=== PATIENT | female | born 1980 | race Caucasian/White ===

== ENCOUNTER 2021-05-13 19:10 | Emergency (ER) | payer OTHER, SELFPAY ==
[2021-05-13 19:12] VITALS: BP 166/109; PULSE 96; RESP 16; TEMP 37.1; O2SAT 99; BMI 26.6
[2021-05-13 19:41] LABS: Appearance Urine HAZY; Glucose Urine UA >=1000 MG/DL (NEG); Leukocyte Esterase Urine NEG (NEG); Specific Gravity - Urine 1.015 (1.005-1.025); UACC Culture Trigger YES; Urine Blood 1+ (NEG); Urine Ketones 5 MG/DL (NEG); Urine Protein 2+ MG/DL (NEG-TRACE)
[2021-05-13 19:52] LABS: Color Urine ORANGE
[2021-05-13 19:53] LABS: Nitrite Urine POS (NEG)
[2021-05-13 19:54] LABS: UPreg QC Valid YES; Urine Pregnancy NEGATIVE (NEGATIVE)
[2021-05-13 19:57] LABS: Bacteria Urine 2+ /LPF; Squamous Epithelial Cell Urine TRACE /LPF; WBC Clumps Urine NOTED; WBC Urine 50-75 /HPF (0-4)
--- NOTE | 2021-05-13 21:48 | ED.FEMALEGU ---
HPI - Female Genitourinary General Chief complaint: Urogenital-Female Stated complaint: ?uti Time Seen by Provider: 05/13/21 21:35 Source: patient Mode of arrival: ambulatory History of Present Illness HPI Narrative: 40-year-old female without significant past medical history presents with pain in burning on urination for the past 2-3 days and has over the past 1 day been associated with chills and nausea with 2 episodes of vomiting. Patient also reports some mild back discomfort Related Data Previous Rx's Medication Instructions Recorded ciprofloxacin HCl 500 mg tablet 500 mg PO Q12H 5 Days #10 tab 05/13/21 (Cipro) phenazopyridine 200 mg tablet 200 mg PO TID PRN #6 tab 05/13/21 (Pyridium) Allergies Allergy/AdvReac Type Severity Reaction Status Date / Time No Known Allergies Allergy Verified 05/13/21 21:46 Review of Systems Review of Systems: Pertinent positives and negatives as stated in HPI 10 point review of systems is otherwise negative. [facility] Past Medical History Source: nursing notes reviewed Social History Social History Patient : No Physical Exam Vital Signs: Vital Signs: Last Vital Signs Temp 98.7 F 05/13/21 19:12 Pulse 96 05/13/21 19:12 Resp 16 05/13/21 19:12 BP 166/109 H 05/13/21 19:12 Pulse Ox 99 05/13/21 19:12 BMI result Body Mass Index 26.6 VITAL SIGNS: Reviewed. GENERAL: Well developed, well nourished, in no acute distress. HEAD: Normocephalic/atraumatic EYES: PERRLA, EOMI LUNGS: Normal breath sounds. No adventitious sounds or accessory muscle use. SpO2<99> CARDIOVASCULAR: Regular rate and rhythm without noted murmurs ABDOMEN: Soft, suprapubic tenderness without rebound, non-distended with bowel sounds, right-sided CVA tenderness NEUROLOGIC: Alert and oriented x 4. Course Course Course Narrative: 40-year-old female with history and clinical presentation consistent with clinical diagnosis of pyelonephritis after review of urinalysis results. Patient provided with combination analgesics, antibiotics as well as pyridium. MDM - Female Genitourinary Lab Data Labs: Lab Results 05/13/21 05/13/21 Range/Units 19:35 19:35 Urine Color ORANGE Urine Appearance HAZY Urine pH 5.0 (5.0-8.0) Ur Specific [place] 1.015 (1.005-1.025) Urine Protein 2+ H (NEG-TRACE) MG/DL Urine Glucose (UA) >=1000 H (NEG) MG/DL Urine Ketones 5 (NEG) MG/DL Urine Blood 1+ H (NEG) Urine Nitrite POS H (NEG) Ur Leukocyte Esterase NEG (NEG) Urine RBC 1-4 (0) /HPF Urine WBC 50-75 H (0-4) /HPF Urine WBC Clumps NOTED Ur Squamous Epith Cells TRACE /LPF Urine Bacteria 2+ /LPF Urine Test NEGATIVE (NEGATIVE) Discharge Plan Discharge Clinical Impression: Pyelonephritis, Dysuria Patient Disposition: Home, Self-Care Instructions: Ciprofloxacin (By mouth), Phenazopyridine (By mouth), Kidney Infection (ED), Dysuria (ED) Additional Instructions: 1. Increase fluid hydration, especially with water. 2. Complete the entire course of antibiotics. 3. Follow-up with your primary care provider in the next 2-3 days for re-evaluation further outpatient management. Return to the ER for worsening symptoms. Prescriptions: New ciprofloxacin HCl [Cipro] 500 mg tablet 500 mg PO Q12H 5 Days Qty: 10 RF: 0 phenazopyridine [Pyridium] 200 mg tablet 200 mg PO TID PRN (Reason: pain) Qty: 6 RF: 0
[2021-05-13] MEDS: Acetaminophen 325 MG TABLET 975 MG PO (21:54)
[2021-05-13] MEDS: levoFLOXacin 500 MG TABLET PO (21:54)
[2021-05-13] MEDS: Phenazopyridine HCL 200 MG TABLET PO (21:54)
[2021-05-13] MEDS: Ibuprofen 400 MG TABLET PO (22:11)
[2021-05-13] MEDS: Ondansetron ODT 4 MG TAB.RAPDIS TRANSLINGU (22:11)
== END 2021-05-13 22:15 | disposition home or self-care (01) ==
LOC: HO.ED 22:14
PROVIDERS: Emergency Provider Student in an Organized Health Care Education/Training Program; PCP Internal Medicine
DX: N12 Tubulo-interstitial nephritis, not specified as acute or chronic (principal); R30.0 Dysuria
CPT/HCPCS: 81001; 81025; 87086; 87088; 87186; 99283

== ENCOUNTER 2023-01-15 14:16 | Emergency (ER) | payer OTHER, SELFPAY ==
--- NOTE | ~2023-01-15 | CT_ITS ---
EXAMINATION: CT ABDOMEN AND PELVIS WITH CONTRAST CLINICAL INFORMATION: RLQ, suprapubic, R CVAT COMPARISON: None. TECHNIQUE: Multidetector volumetric imaging was performed from the superior aspect of the liver through the pubic symphysis following administration of 85 mL Omnipaque 300 intravenous contrast. Sagittal and coronal reformatted images were obtained on the technologist workstation.. This CT examination was performed using dose optimization techniques as appropriate, variously including the following: *Automated exposure control *Adjustment of mA and/or kV according to patient size (this includes techniques or standardized protocols for targeted exams where dose is matched to indication/reason for exam; i.e. extremities or head) *Use of iterative reconstruction technique DLP: 544 mGy-cm FINDINGS: LUNG BASES: Bibasilar airspace changes likely reflecting a component of atelectasis. Basilar infiltrates considered less likely. LIVER, GALLBLADDER, AND BILIARY TREE: The liver is normal in size, shape, and attenuation. No focal hepatic lesion or biliary ductal dilatation is present. The gallbladder surgically absent PANCREAS: Unremarkable. SPLEEN: Unremarkable. ADRENAL GLANDS: Unremarkable. KIDNEYS AND URETERS: The kidneys are normal in size, shape, and attenuation. No hydronephrosis, hydroureter, or calculi seen. No perinephric stranding. BLADDER: Unremarkable. GASTROINTESTINAL TRACT: The small and large bowel are unremarkable. The appendix is unremarkable. ABDOMINAL WALL: Tiny bilateral fat-containing inguinal hernias incidentally noted LYMPHOVASCULAR STRUCTURES: Minimal vascular calcification within the aorta iliac system. No bulky adenopathy PELVIC VISCERA: Unremarkable. OSSEOUS STRUCTURES: Unremarkable. CT/CT abdomen pelvis w IV con IMPRESSION: No acute intra-abdominal process seen. Bibasilar airspace changes likely due to atelectasis. Basilar infiltrates considered less likely.
--- NOTE | 2023-01-15 14:23 | ED_ITS ---
HPI - General Adult General Chief complaint: Abdominal Pain Stated complaint: UTI, Back pain Time Seen by Provider: 01/15/23 17:49 Source: patient Mode of arrival: ambulatory Limitations: no limitations History of Present Illness HPI narrative: 42 yold female with pmh of DM and kidney stones presents to the ED for right flank pain, dysuria, and right lower abdominal pain. Patient believes she is having an UTI. patient denies any recent trauma. Patient states also some nausea. Related Data Previous Rx's Medication Instructions Recorded ciprofloxacin HCl 500 mg tablet 500 mg PO Q12H 5 days #10 tabs 05/13/21 (Cipro) phenazopyridine 200 mg tablet 200 mg PO TID PRN pain 6 doses #6 05/13/21 (Pyridium) tabs levofloxacin 750 mg tablet 750 mg PO DAILY 5 days #5 tabs 01/15/23 naproxen 500 mg tablet 500 mg PO BID PRN pain 7 days #14 01/15/23 tabs Allergies Allergy/AdvReac Type Severity Reaction Status Date / Time No Known Allergies Allergy Verified 05/13/21 21:46 Review of Systems 2 Review of Systems: Right flank pain, dysuria, right lower abdominal pain Yes all other systems are reviewed and are negative [facility] Social History Social History Alcohol intake: never Smoked in Last 30 Days: No Use of substances other than those prescribed or required for medical reasons: No Advance Directives: No Advance Directives Information Provided: No Patient : No Physical Exam ED Vital Signs: Vital Signs - 24 hr 01/15/23 19:31 01/15/23 22:29 Temperature 98.6 F 99.1 F Pulse Rate 73 70 Respiratory Rate 16 16 Blood Pressure 101/65 113/73 Pulse Oximetry 96 98 Oxygen Delivery Method Room Air Room Air BMI result Body Mass Index 26.5 Const General: cooperative, healthy appearing, comfortable, no acute distress, well developed and alert Orientation/consciousness: oriented to person, oriented to place, oriented to time and patient oriented x3 HENMT Head: Yes normal to inspection, Yes No palpable skull fracture present, Yes normocephalic and Yes atraumatic Eyes General: appearance normal, both eyes and all related structures Neck Neck: Yes normal visual inspection, Yes full ROM, Yes no lymphadenopathy, Yes no meningeal signs, Yes trachea midline, Yes supple, No anterior neck swelling and No tender Chest Chest palpation & inspection: normal inspection of the chest and normal palpation of entire chest wall Resp Effort & Inspection: normal respiratory effort and able to speak in complete sentences Auscultation: clear to auscultation bilaterally Cardio Jugular venous distension: no JVD Heart sounds: S1 normal heart sound present and S2 normal heart sound present GI Inspection: Yes normal to inspection and No abdominal wall ecchymosis Palpation (GI): Soft to palpation, not firm, Tenderness to palpation present (GI) in the RLQ, no guarding and not rigid General: Yes CVA tenderness (Right flank pain) Back/Spine/Pelvis Back: CVA tenderness (Right flank pain) Skin General skin exam: no rashes or lesions noted, elasticity normal and turgor normal Neuro General: oriented to person, oriented to place, oriented to time, patient oriented x3, gait normal, tone normal, moves all extremities, Normal light touch and pain sensation, no meningeal signs, no focal motor deficits, CN's II-XI intact bilaterally and normal sensation to monofilament Extrem General: Yes normal to inspection and Yes full ROM Psych Appearance: grossly normal, well kempt and not disheveled Course Course Course Narrative: RME: 42yo F w/no sig PMHx c/o dysuria, nausea, & R sided back pain radiating to L back and RLQ x5 days. Denies fever, chills, N/V, hematuria Abdomen soft with RLQ/suprapubic & R CVAT Labs, UA, CTAP w/IV contrast ordered Full HPI, ROS and PE to be performed by primary ED provider. Medications Administered Discontinued Medications Generic Name Dose Route Start Last Admin Trade Name Freq PRN Reason Stop Dose Admin Sodium Chloride 1,000 mls @ 999 mls/hr 01/15/23 17:52 01/15/23 18:41 Ns IV 01/15/23 18:52 Infused .Q1H1M STA Infusion Sodium Chloride 1,000 mls @ 999 mls/hr 01/15/23 17:52 01/15/23 20:10 Ns IV 01/15/23 18:52 Infused .Q1H1M STA Infusion Ceftriaxone Sodium 1 gm/ 50 mls @ 100 mls/hr 01/15/23 21:43 01/15/23 23:00 Sodium Chloride IV 01/15/23 22:12 Infused ONCE ONE Infusion Iohexol 100 ml 01/15/23 20:46 01/15/23 20:47 Iohexol 350 Mg/Ml 100 Ml Infus..Btl IV 01/15/23 20:47 85 ml ONCE ONE Administration Ketorolac Tromethamine 15 mg 01/15/23 18:24 01/15/23 18:45 Ketorolac Tromethamine 15 Mg/Ml Vial IVPUSH 01/15/23 18:25 15 mg ONCE ONE Administration Ondansetron HCl 4 mg 01/15/23 18:24 01/15/23 18:46 Ondansetron Hcl 4 Mg/2 Ml Vial IVPUSH 01/15/23 18:25 4 mg ONCE ONE Administration Medical Decision Making Medical Decision Making [facility] Narrative: [age] year old female history of diabetes and kidney stones presents to ED for right flank pain, dysuria, and right lower quadrant abdominal pain. Patient believes she is having a UTI. Patient denies any recent trauma. Labs shows glucose of 399. patient not in DKA. Will give fluids 11:12am: UA shows UTI. CT scan negative for signs of kidney stones. Patient afebrile not tachy. Lactic acid negative. Patient to be treated as outpatient pyelonephritis. Patient's glucose was elevated most likely due to infection and missing her does metformin. Patient not in DKA Differential Diagnosis Differential Diagnoses: The differential diagnosis associated with the presentation includes ( pyelonephritis, kidney stones, UTI, DKA, HHS) Admission/Observation Consideration of admission/observation: Escalation of care including admission/observation considered Lab Data [facility] Lab Attestation statement: I reviewed the patient's lab results. 01/15/23 14:56 01/15/23 14:56 Labs: Lab Results 01/15/23 01/15/23 01/15/23 Range/Units 14:56 18:06 23:15 WBC 14.2 H (4.8-10.8) X10*3/uL RBC 5.12 (4.20-5.50) X10*6/uL Hgb 14.8 (12.0-16.0) g/dl Hct 44.2 (37.0-47.0) % MCV 86.3 (80.0-98.0) fL MCH 28.9 (27.0-33.0) pg MCHC 33.5 (31.0-35.0) g/dl RDW 12.3 (11.0-16.0) % Plt Count 257 (160-400) X10*3/uL MPV 11.2 (9.4-12.3) fL Immature Gran % (Auto) 0.5 H (0.0-0.4) % Neut % (Auto) 77.0 H (45-73) % Lymph % (Auto) 16.0 L (20-40) % [place] % (Auto) 4.2 (2-11) % Eos % (Auto) 2.0 (0-4) % Baso % (Auto) 0.3 (0-2) % Lymph # (Auto) 2.3 (1.2-4.9) X10*3/uL [place] # (Auto) 0.6 (0.1-1.2) X10*3/uL Eos # (Auto) 0.3 (0.0-0.4) X10*3/uL Baso # (Auto) 0.0 (0.0-0.2) X10*3/uL Abs Immat Gran (auto) 0.07 H (0.00-0.03) X10*3/uL Absolute Neuts (auto) 10.9 H (2.0-8.3) x10*3/uL Absolute Nucleated RBC 0.000 (0.0-0.012) X10*3/uL Nucleated RBC % (auto) 0.0 (0.0-0.2) /100WBC Sodium 134 L (135-145) mmol/L Potassium 4.0 (3.3-5.1) mmol/L Chloride 101 (96-108) mmol/L Carbon Dioxide 26 (22-29) mmol/L Anion Gap 11 L (12-20) BUN 7 L (9-16) mg/dL Creatinine 0.88 (0.5-1.4) mg/dL Estim Creat Clear Calc 83.8 Estimated GFR > 60 POC Glucose 324 H (60-115) mg/dL Random Glucose 399 H* (60-115) mg/dL Estimat Average Glucose 326 mg/dL Hemoglobin A1c % 13.0 H (<6.0) % Lactic Acid 1.0 (0.5-2.0) mmol/L Calcium 9.5 (8.4-10.2) mg/dL Magnesium 1.8 (1.6-2.6) mg/dL Total Bilirubin 0.5 (0.0-1.0) mg/dL Direct Bilirubin 0.2 (0.0-0.5) mg/dL AST 31 (5-31) U/L ALT 47 H (0-31) U/L Alkaline Phosphatase 121 H (39-117) U/L Total Protein 7.0 (6.5-8.0) g/dL Albumin 4.2 (3.5-5.0) g/dL Urine Color Dark Yellow Urine Appearance Clear Urine pH 5.5 (5.0-9.0) Ur Specific [place] >= 1.030 H (1.005-1.025) Urine Protein Negative (Neg-Trace) mg/dL Urine Glucose (UA) >=1000 H (Negative) mg/dL Urine Ketones Negative (Negative) mg/dL Urine Blood Trace H (Negative) Urine Nitrite Positive H (Negative) Ur Leukocyte Esterase Small (1+) H (Negative) Urine RBC 0-2 (0-2) /HPF Urine WBC >50 H (0-5) /HPF Ur Squamous Epith Cells 0-2 (0-2) /HPF Urine Bacteria None Seen (None Seen) Hyaline Casts 0-2 (0-2) /LPF Urine Yeast Present Urine Test NEGATIVE (NEGATIVE) Independent Interpretation I performed an independent interpretation of an: CT Scan Radiology Impression Discussion of test interpretation with radiology: I have reviewed the radiologist's reading. Independent Historian Clinical information obtained from an independent historian. History obtained from or confirmed by: Spouse External Record Review External record reviewed: Other (Prior ED visist) Prescription Management I considered prescription management with: Antibiotic Discharge Plan Discharge Clinical Impression: Pyelonephritis Patient Disposition: Home, Self-Care Instructions: Kidney Infection (ED), Diabetic Hyperglycemia (ED) Additional Instructions: return to the ED immediately for any abdominal pain, fever, chills, hematuria, nausea, vomiting, weakness, or any other concerning symptoms. Please follow-up with the primary care provider Prescriptions: New levofloxacin 750 mg tablet 750 mg PO DAILY 5 Days Qty: 5 0RF naproxen 500 mg tablet 500 mg PO BID PRN (Reason: pain) 7 Days Qty: 14 0RF No Action ciprofloxacin HCl [Cipro] 500 mg tablet 500 mg PO Q12H 5 Days Qty: 10 0RF phenazopyridine [Pyridium] 200 mg tablet 200 mg PO TID PRN (Reason: pain) Qty: 6 0RF Stand Alone Forms: Work/School Release Interventions: ED Discharge Assessment Last Done: 01/15/23 23:28 Discharge Date/Time: 01/15/23 23:29 Print Language: [place]
[2023-01-15 14:24] VITALS: BP 123/81; PULSE 94; RESP 18; TEMP 36.7; O2SAT 97; BMI 26.5
[2023-01-15 15:02] LABS: MANUAL DIFF FLAG NO
[2023-01-15 15:06] LABS: Appearance Urine Clear; Color Urine Dark Yellow; Glucose Urine UA >=1000 mg/dL (Negative); Leukocyte Esterase Urine Small (1+) (Negative); Nitrite Urine Positive (Negative); PH 5.5 (5.0-9.0); Specific Gravity - Urine >= 1.030 (1.005-1.025); UMIC TRIGGER UACC YES; Urine Blood Trace (Negative); Urine Ketones Negative (Negative); Urine Protein Negative (Neg-Trace)
[2023-01-15 15:11] LABS: Basophils Percent Auto 0.3 % (0-2); Eosinophils Absolute Auto 0.3 X10*3/uL (0.0-0.4); Hematocrit 44.2 % (37.0-47.0); Hemoglobin 14.8 g/dl (12.0-16.0); Imm Gran Abs Auto 0.07 X10*3/uL (0.00-0.03); Imm Gran Pct Auto 0.5 % (0.0-0.4); Lymphocytes Absolute Auto 2.3 X10*3/uL (1.2-4.9); Mean Corpuscular HGB Conc 33.5 g/dl (31.0-35.0); Mean Corpuscular Hemoglobin 28.9 pg (27.0-33.0); Mean Corpuscular Volume 86.3 fL (80.0-98.0); Mean Platelet Volume 11.2 fL (9.4-12.3); Monocytes Absolute Auto 0.6 X10*3/uL (0.1-1.2); Monocytes Percent Auto 4.2 % (2-11); Neutrophils Absolute Auto 10.9 x10*3/uL (2.0-8.3); Platelet Count 257 X10*3/uL (160-400); Red Blood Count 5.12 X10*6/uL (4.20-5.50); Red Cell Distribution Width 12.3 % (11.0-16.0); UPreg QC Valid YES; Urine Pregnancy NEGATIVE (NEGATIVE); White Blood Count 14.2 X10*3/uL (4.8-10.8)
[2023-01-15 15:20] LABS: Alanine Aminotransferase 47 U/L (0-31); Albumin Level 4.2 g/dL (3.5-5.0); Alkaline Phosphatase 121 U/L (39-117); Anion Gap 11 (12-20); Aspartate Amino Transferase 31 U/L (5-31); Bacteria Urine None Seen (None Seen); Bilirubin Direct 0.2 mg/dL (0.0-0.5); Bilirubin Total 0.5 mg/dL (0.0-1.0); Blood Urea Nitrogen 7 mg/dL (9-16); Calcium 9.5 mg/dL (8.4-10.2); Carbon Dioxide 26 mmol/L (22-29); Chloride 101 mmol/L (96-108); Creatinine Clr Calc Pharmacy 83.8; Estimated Glomerular Filt Rate > 60; Glucose Random 399 mg/dL (60-115); Hyaline Casts Urine 0-2 /LPF (0-2); Magnesium 1.8 mg/dL (1.6-2.6); RBC Urine 0-2 /HPF (0-2); Sodium 134 mmol/L (135-145); Squamous Epithelial Cell Urine 0-2 /HPF (0-2); UACC Culture Trigger YES; WBC Urine >50 /HPF (0-5)
[2023-01-15 16:10] LABS: Estimated Average Glucose 326 mg/dL
--- OUTSIDE RECORDS SUMMARY | 2023-01-15 17:53 | XMS_ITS | Continuity of Care Document ---
Author Name Unknown Organization [facility] Address [address] [place] [id number]- Care Team Providers Care Tennis Ball Cover Cementer Name Role Phone Alejandro Marie MD Primary Care Physician Encounter [facility] [place] Date(s): 05/31/22 - 06/30/22 [facility] [address] [place] [id number] Allergies, Adverse Reactions, Alerts No Known Allergies Immunizations Given and Recorded Vaccine Date Status Refusal Reason tetanus/diphtheria/pertussis, acel(Tdap) 04/26/11 Given diphtheria-tetanus toxoids (DT) 05/06/00 Given Medications Freestyle Lite Lancets See Instructions, # 100 each, Refills 11, Tot. Refills 11, Maintenance, check your sugar 3x a day. E 11.9, 02/24/19 16:49:53 EDT, Compound Start Date: 02/24/19 Status: Ordered Freestyle Lite Lancets See Instructions, # 200 each, Refills 2, Tot. Refills 2, Maintenance, use as directed for Type 2 Diabetes Mellitus to test blood sugars up to 3x a day dx 11.9, 10/04/21 9:53:00 EDT, Compound, 165.1, cm, 12/15/20 9:55:00 EDT, Height Start Date: 10/04/21 Stop Date: 01/02/22 Status: Ordered Freestyle Lite Test Strips See Instructions, # 100 each, Refills 11, Tot. Refills 11, Maintenance, check your sugar 3x a day. E 11.9, 02/24/19 16:49:44 EDT, Compound Start Date: 02/24/19 Status: Ordered Freestyle Lite Test Strips See Instructions, # 200 each, Refills 11, Tot. Refills 11, Maintenance, use as directed for Type 2 Diabetes Mellitus to test blood sugars up to 3x a day dx 11.9, 01/11/22 9:00:00 EDT, Compound, 165.1, cm, 12/15/20 9:55:00 EDT, Height Start Date: 01/11/22 Stop Date: 01/06/23 Status: Ordered Lantus Solostar Pen 100 units/mL subcutaneous solution See Instructions, Subcutaneous Injection, Use as directed for Diabetes mellitus type 2. (Max Dose =40 units/day) Dx 11.9, # 3 each, 6 Refills, Maintenance, 08/15/21 10:01:00 EDT, [id number],Partial fill upon patient request if the prescript... Start Date: 08/15/21 Stop Date: 03/13/22 Status: Ordered letrozole 2.5 mg oral tablet 3 tablets, By Mouth, Daily, Start taking on Day 3 of Cycle, # 15 tablet, 3 Refills, Maintenance, 08/20/19 16:39:00 EDT, [id number], please discard all previous scripts for Letrozole, 165.1, cm, 02/25/19 11:29:00 EDT, Height Start Date: 08/20/19 Stop Date: 09/09/19 Status: Ordered metFORMIN 500 mg oral tablet, extended release 2 tablet = 1,000 mg, By Mouth, 2 times a day before breakfast and dinne, E 11.9, # 120 tablet, 11 Refills, Maintenance, 12/25/20 15:10:00 EDT, ER Tablet, [id number], 165.1, cm, 12/15/20 9:55:00 EDT, Height Start Date: 12/25/20 Status: Ordered MetroGel-Vaginal 0.75% vaginal gel with applicator 1 applicator, Vaginally, Daily at bedtime, # 5 Doses, 0 Refills, Maintenance, 02/17/19 14:14:18 EDT, 1 applicator Vaginally Daily at bedtime,x5 days Start Date: 02/17/19 Stop Date: 02/22/19 Status: Ordered Pen [place], 32 G x 4 mm BD Ultra Fine III See instructions, # 200 each, Refills 8, Tot. Refills 8, Maintenance, use daily as directed for Type 2 Diabetes Mellitus - Dx 11.9, 01/18/22 11:58:00 EDT, Compound, 165.1, cm, 12/15/20 9:55:00 EDT, Height Start Date: 01/18/22 Stop Date: 10/15/22 Status: Ordered Problem List Condition Confirmation Course Effective Dates Status H ealth Status Informant Cervical intraepithelial neoplasia Confirmed Active Fibromyalgia Confirmed Active Hypertension Confirmed Active Prediabetes, A1C = 6.4% on 07/08/2014. 2 hr GTT FBS = 85 mg/dL, 2 hr = 160 mg/dL Confirmed 07/08/14 Active Thoracic back pain and chest pain Confirmed Active Tobacco use disorder Confirmed Active Type 2 diabetes mellitus Confirmed Active Social History Social History Type Response Smoking Status Current every day sm oker; Type: Cigarettes; Tobacco use times per day: 2 OR 3 CIGS/DAY; entered on: 07/03/13 Sex Patient Care team information Care Team Personnel Name: Alejandro Marie MD Position: Reference Physician Member Role: PCP Address: Address: [address] [place] [address] [address] [place] [address]- Care Team Related Persons Name: AMBROSIO JOHNSON Address: home [address] [place] [id number]
--- OUTSIDE RECORDS SUMMARY | 2023-01-15 17:53 | XMS_ITS | Continuity of Care Document ---
Author Name Unknown Organization [facility] ter Address [address] [place] [address]- Care Team Providers Care Defence [employer] Senior Officer Name Role Phone Frank CASTANO, Alejandro Primary Care Physician Encounter [facility] Date(s): 04/25/19 - 04/25/[address] [id number]- [facility] Attending Physician: Yamilka Hughes MD Allergies, Adverse Reactions, Alerts Substance Reaction Severity Status NKA Active Immunizations Given and Recorded Vaccine Date Status [...] check your sugar 3x a day. E 11., 02/24/19 16:49:44 EDT, Compound Start Date: 02/24/19 Status: Ordered Labetalol 0 Refills, Maintenance, 02/16/19 15:02:47 EDT Start Date: 02/16/19 Status: Ordered letrozole 2.5 mg oral tablet 2 tablets, By Mouth, Daily, Take 2 tablets daily from day 3 thru 7 of cycle, # 10 tablet, 3 Refills, Maintenance, 02/25/19 12:07:11 EDT Start Date: 02/25/19 Stop Date: 03/17/19 Status: Ordered Metformin By Mouth, 0 Refills, Maintenance, 02/16/19 15:02:54 EDT Start Date: 02/16/19 Status: Ordered metFORMIN 500 mg oral tablet, extended release 2 tablet = 1,000 mg, By Mouth, 2 times a day before breakfast and dinne, E 11.9 increase by 1 pill per wk until mazimized. take with food, # 120 tablet, 11 Refills, Maintenance, 02/24/19 16:06:19 EDT, ER Tablet Start Date: 02/24/19 Status: Ordered MetroGel-Vaginal 0.75% vaginal gel with applicator 1 applicator, Vaginally, Daily at bedtime, # 5 Doses, 0 Refills, Maintenance, 02/17/19 14:14:18 EDT, 1 applicator Vaginally Daily at bedtime,x5 days Start Date: 02/17/19 Stop Date: 02/22/19 Status: Ordered Multivitamin Tablet 0 Refills, Maintenance, 02/16/19 15:02:41 EDT Start Date: 02/16/19 Status: Ordered Problem List Condition Effective Dates Status Health Status Inform ant Cervical intraepithelial neoplasia(Confirmed) Active Fibromyalgia(Confirmed) Active Hypertension(Confirmed) Active Prediabetes, A1C = 6.4% on . 2 hr GTT FBS = 85 mg/dL, 2 hr = 160 mg/dL(Confirmed) 07/08/14 Active Thoracic back pain and chest pain(Confirmed) Active Tobacco use disorder(Confirmed) Active Social History Social History Type Response Smoking Status Current every day debbie boykin; Type: Cigarettes; Tobacco use times per day: 2 OR 3 CIGS/DAY; entered on: 07/03/13 Sex
--- OUTSIDE RECORDS SUMMARY | 2023-01-15 17:53 | XMS_ITS | Continuity of Care Document ---
Author Name Unknown Organization [facility] Address [address] [place] [address]- Care Team Providers Care Spanisher Name Role Phone Alejandro Marie MD Primary Care Physician [phone] Encounter [facility] [place] Date(s): 02/02/21 - 03/04/21 [facility] [address] [place] [id number] Attending Physician: Narda Navarro Admitting Physician: AdmtrNarda Referring Physician: AdmtrNarda Allergies, Adverse Reactions, Alerts Substance Reaction Severity [...] Lancets See Instructions, # 200 each, Refills 5, Tot. Refills 5, Maintenance, use as directed for Type 2 Diabetes Mellitus to test blood sugars up to 3x a day dx 11.9, 12/15/20 10:46:00 EDT, Compound, 165.1,cm, 12/15/20 9:55:00 EDT, Height Start Date: 12/15/20 Stop Date: 06/13/21 Status: Ordered Freestyle Lite Test Strips See [...] up to 3x a day dx 11.9, 12/15/20 10:46:00 EDT, Compound, 165.1, cm, 12/15/20 9:55:00 EDT, Height Start Date: 12/15/20 Stop Date: 12/10/21 Status: Ordered Lantus Solostar Pen 100 units/mL subcutaneous solution See Instructions, Subcutaneous Injection, Use as directed for Diabetes mellitus type 2. (Max Dose =40 units/day) Dx 11.9, # 3 each, 6 Refills, Maintenance, 12/15/20 10:46:00 EDT, [id number] fill upon patient request if the prescript... Start Date: 12/15/20 Stop Date: 07/13/21 Status: Ordered letrozole 2.5 mg oral tablet [...] 02/17/19 Stop Date: 02/22/19 Status: Ordered Pen [place], 32 G x 4 mm BD Ultra Fine III See instructions, # 200 each, Refills 5, Tot. Refills 5, Maintenance, use as directed for Type 2 Diabetes Mellitus - Dx 11.9, 12/15/20 10:47:00 EDT, Compound, 165.1, cm, 12/15/20 9:55:00 EDT, Height Start Date: 12/15/20 Stop Date: 06/13/21 Status: Ordered Problem List Condition Effective Dates [...]
--- OUTSIDE RECORDS SUMMARY | 2023-01-15 17:53 | XMS_ITS | Continuity of Care Document ---
Author Name Unknown Organization [facility] Address [address] [place] [id number]- Care Team Providers Care Home Based Assistant Name Role Phone Alejandro Marie MD Primary Care Physician [phone] Encounter [place] Date(s): 11/23/21 - 12/23/21 [facility] [address] [place] [id number] Attending Physician: Narda Navarro Admitting Physician: AdmtrNarda Referring Physician: Admtr, [id number] Allergies, Adverse Reactions, Alerts No Known Allergies [...] 02/17/19 Stop Date: 02/22/19 Status: Ordered Pen [place], 32 G x 4 mm BD Ultra [...]
--- OUTSIDE RECORDS SUMMARY | 2023-01-15 17:53 | XMS_ITS | Continuity of Care Document ---
Author Name Unknown Organization [facility] ter Address [address] [place] [phone]- Care Team Providers Care Track Supervisor Name Role Phone Frank CASTANO, Alejandro Primary Care Physician Encounter [facility] [place] Date(s): 03/09/21 - 05/27/[address] [id number] Attending Physician: Joseph Todd MD Admitting Physician: Joseph Todd MD Referring Physician: Alejandro Marie MD Allergies, Adverse Reactions, Alerts No Known Allergies [...] 02/17/19 Stop Date: 02/22/19 Status: Ordered Pen [place], 32 G x 4 mm BD Ultra [...]
--- OUTSIDE RECORDS SUMMARY | 2023-01-15 17:53 | XMS_ITS | Continuity of Care Document ---
Author Name Unknown Organization [facility] Address [address] [place] [address]- Care Team Providers Care Boom Master Name Role Phone Jonathon CASTANO, Aki Primary Care Physician En[place] [facility] [place] Date(s): 12/14/20 - 01/18/21 [facility] [address] [place] [id number] Attending Physician: Joseph Todd MD Admitting Physician: Joseph Todd MD Allergies, Adverse Reactions, Alerts Substance Reaction [...] 02/17/19 Stop Date: 02/22/19 Status: Ordered Pen [place], 32 G x 4 mm BD Ultra [...]
--- OUTSIDE RECORDS SUMMARY | 2023-01-15 17:53 | XMS_ITS | Continuity of Care Document ---
Author Name Unknown Organization [facility] Address [address] [place] [address]- Care Team Providers Care Business Test Analyst Name Role Phone Alejandro Marie MD Primary Care Physician En[facility] [place] Date(s): 08/25/21 - 12/23/21 [facility] [address] [place] [id number] Attending Physician: Ly Archer MD Admitting Physician: Ly Archer MD Referring Physician: Alejandro Marie MD Allergies, [...] 02/17/19 Stop Date: 02/22/19 Status: Ordered Pen [place], 32 G x 4 mm BD Ultra [...]
--- OUTSIDE RECORDS SUMMARY | 2023-01-15 17:53 | XMS_ITS | Continuity of Care Document ---
Author Name Unknown Organization [facility] Address [address] [place] [address]- Care Team Providers Care Coat Presser Name Role Phone Alejandro Marie MD Primary Care Physician [place] [facility] [place] 07/10/19 [facility] [address] [place] [address]- [facility] Attending Physician: AdmNarda harrington Admitting Physician: Admtr, Narda Referring Physician: Admtr, Ar8 Allergies, Adverse Reactions, Alerts Substance Reaction Severity [...] Cycle, # 15 tablet, 3 Refills, Maintenance, 05/01/19 16:39:00 EST, [id number], please discard all previous scripts for Letrozole, 165.1, cm, 02/25/19 11:29:00 EDT, Height Start Date: 05/01/19 Stop Date: 05/21/19 Status: Ordered Metformin By Mouth, 0 Refills, [...]
--- OUTSIDE RECORDS SUMMARY | 2023-01-15 17:53 | XMS_ITS | Continuity of Care Document ---
Author Name Unknown Organization [facility] Address [address] [place] [address]- Care Team Providers Care Cloth Mercerizer Back Tender Name Role Phone Frank CASTANO, Alejandro Primary Care Physician [place] [facility] [place]20 - 03/04/21 [facility] [address] [place] [address]- Attending Physician: Joseph Todd MD Admitting Physician: Peyton CASTANO, Joseph Referring Physician: Jonathon CASTANO, Aik Allergies, Adverse Reactions, Alerts Substance Reaction Severity [...] 02/17/19 Stop Date: 02/22/19 Status: Ordered Pen [place], 32 G x 4 mm BD Ultra [...] Response Smoking Status Current every day debbie oker; Type: Cigarettes; Tobacco use times per day: 2 OR 3 CIGS/DAY; entered on: 07/03/13 Sex
--- OUTSIDE RECORDS SUMMARY | 2023-01-15 17:53 | XMS_ITS | Continuity of Care Document ---
Author Name Unknown Organization [facility] Address [address] [place] [address]- Care Team Providers Care Bowling Ball Molder Name Role Phone Alejandro Marie MD Primary Care Physician [place] [facility] [place]/17/21 - 09/16/21 [facility] [address] [place] [id number] Allergies, Adverse Reactions, Alerts No Known [...] 02/17/19 Stop Date: 02/22/19 Status: Ordered Pen [place], 32 G x 4 mm BD Ultra [...]
--- OUTSIDE RECORDS SUMMARY | 2023-01-15 17:53 | XMS_ITS | Continuity of Care Document ---
Author Name Unknown Organization [facility] Address [address] [place] [address]- Care Team Providers Care Business Services Tech Name Role Phone Alejandro Marie MD Primary Care Physician [place] [facility] [place] 08/30/22 - 09/29/22 [facility] [address] [place] [id number] Attending Physician: Narda Navarro Admitting Physician: AdmNarda harrington Referring Physician: AdmtrNarda Allergies, Adverse Reactions, Alerts No Known Allergies [...] 02/17/19 Stop Date: 02/22/19 Status: Ordered Pen [place], 32 G x 4 mm BD Ultra [...] Reference Physician Member Role: PCP Address: Address: [address] [place] [address] [address] [place] [address]- Care Team Related Persons Name: AMBROSIO JOHNSON Address: home [address] [place] [address]
--- OUTSIDE RECORDS SUMMARY | 2023-01-15 17:53 | XMS_ITS | Continuity of Care Document ---
Author Name Unknown Organization [facility] ter Address [address] [place] [address]- Care Team Providers Care Flat Surfacer Name Role Phone Alejandro Marie MD Primary Care Physician [place] [facility] [place] 04/27/21 - 05/27/[address] [address]- Attending Physician: AdmNarda harrington Admitting Physician: Admtr, Ar8 Referring Physician: Admtr, Ar8 Allergies, Adverse Reactions, [...] 02/17/19 Stop Date: 02/22/19 Status: Ordered Pen [place], 32 G x 4 mm BD Ultra [...]
--- OUTSIDE RECORDS SUMMARY | 2023-01-15 17:53 | XMS_ITS | Continuity of Care Document ---
Author Name Unknown Organization [facility] Address [address] [place] [address]- Care Team Providers Care Ornamenter Hand Name Role Phone Alejandro Marie MD Primary Care Physician [place] [facility] [place]): 04/01/19 - 07/30/19 [facility] [address] [place] [address]- [facility] Attending Physician: Joseph Todd MD Admitting Physician: Joseph Todd MD Referring Physician: Alejandro Marie MD Allergies, Adverse Reactions, Alerts Substance Reaction [...] tablet, 3 Refills, Maintenance, 05/01/19 16:39:00 EST, [id number], please discard all previous scripts for [...] Response Smoking Status Current every day debbie okjayy; Type: Cigarettes; Tobacco use times per day: 2 OR 3 CIGS/DAY; entered on: 07/03/13 Sex
--- OUTSIDE RECORDS SUMMARY | 2023-01-15 17:53 | XMS_ITS | Continuity of Care Document ---
Author Name Unknown Organization [facility] ter Address [address] [place] [address]- Care Team Providers Care Hand Shaker Name Role Phone Alejandro Marie MD Primary Care Physician [phone] En[place] [facility] [place] Date(s): 08/29/21 - 12/03/[address] [address] Attending Physician: Saad Scott DDS, MD Admitting Physician: Saad Scott DDS, MD Allergies, Adverse Reactions, Alerts No Known [...] 02/17/19 Stop Date: 02/22/19 Status: Ordered Pen [place], 32 G x 4 mm BD Ultra [...]
--- OUTSIDE RECORDS SUMMARY | 2023-01-15 17:53 | XMS_ITS | Continuity of Care Document ---
Author Name Unknown Organization [facility] ter Address [address] [place] [address]- Care Team Providers Care Janitor Name Role Phone Frank CASTANO, Alejandro Primary Care Physician [place] [facility] [place] - 04/16/[address] [address] [facility] Attending Physician: Yamilka Hughes MD [...]
--- OUTSIDE RECORDS SUMMARY | 2023-01-15 17:53 | XMS_ITS | Continuity of Care Document ---
Author Name Unknown Organization [facility] Address [address] [place] [address]- Care Team Providers Care Manager Of Revenue Name Role Phone Alejandro Marie MD Primary Care Physician [phone] Encounter [facility] [place] Date(s): 08/09/21 - 09/08/21 [facility] [address] [place] [id number] Allergies, Adverse Reactions, Alerts No Known Allergies [...] 02/17/19 Stop Date: 02/22/19 Status: Ordered Pen [place], 32 G x 4 mm BD Ultra [...]
--- OUTSIDE RECORDS SUMMARY | 2023-01-15 17:53 | XMS_ITS | Continuity of Care Document ---
Author Name Unknown Organization [facility] Address [address] [place] [address]- Care Team Providers Care Line Haul Truck Driver Name Role Phone Alejandro Marie MD Primary Care Physician En[place] [facility] [place] Date(s): 11/22/21 - 12/22/21 [facility] [address] [place] [id number] Allergies, Adverse Reactions, Alerts No [...] 02/17/19 Stop Date: 02/22/19 Status: Ordered Pen [place], 32 G x 4 mm BD Ultra [...]
--- OUTSIDE RECORDS SUMMARY | 2023-01-15 17:53 | XMS_ITS | Continuity of Care Document ---
Author Name Unknown Organization [facility] Address [address] [place] [address]- Care Team Providers Care Batching Operator Name Role Phone Alejandro Marie MD Primary Care Physician En[place] [facility] [place] Date(s[place] 10/04/21 - 11/03/21 [facility] [address] [place] [id number] Allergies, Adverse Reactions, Alerts No Known [...] 02/17/19 Stop Date: 02/22/19 Status: Ordered Pen [place], 32 G x 4 mm BD Ultra [...]
--- OUTSIDE RECORDS SUMMARY | 2023-01-15 17:53 | XMS_ITS | Continuity of Care Document ---
Author Name Unknown Organization [facility] Address [address] [place] [address]- Care Team Providers Care Launch Commander [employer] Name Role Phone Alejandro Marie MD Primary Care Physician [phone] [place] [facility] [place](s[place] 02/17/21 - 03/19/21 [facility] [address] [place] [id number] Allergies, Adverse Reactions, Alerts Substance Reaction Severity [...] 02/17/19 Stop Date: 02/22/19 Status: Ordered Pen [place], 32 G x 4 mm BD Ultra [...]
--- OUTSIDE RECORDS SUMMARY | 2023-01-15 17:53 | XMS_ITS | Continuity of Care Document ---
Author Name Unknown Organization [facility] ter Address [address] [place] [address]- Care Team Providers Care Vmware Consultant Name Role Phone Alejandro Marie MD Primary Care Physician Encounter [facility] [place] Date(s): 03/27/21 - 03/28/[address] [address]- Discharge Disposition: A-D/C Walkout Attending Physician: Not on Staff, Attending MD Admitting Physician: Not on Staff, Admitting MD Referring Physician: Not on Staff, Referring MD Allergies, Adverse Reactions, Alerts Substance Reaction [...] 02/17/19 Stop Date: 02/22/19 Status: Ordered Pen [place], 32 G x 4 mm BD Ultra [...] chest pain(Confirmed) Active Tobacco use disorder(Confirmed) Active Results Orders for Microbiology Reports Name Date Group A Strep Screen and Culture 1 Microbiology Reports TEST:Group A Strep Screen and Culture STATUS:Unauthenticated BODY SITE: SOURCE:THROAT COLLECTED DATE/TIME:03/28/21 12:12 AM Group A Strep Screen and Culture SPECIMEN DESCRIPTION : THROAT SWAB SPECIAL REQUESTS : NONE DIRECT EXAM : RAPID GROUP A RESULT IS NEGATIVE, REFER TO CULTURE RESULT. REPORT STATUS : PRELIMINARY REPORT Radiology Reports * Exam Date Time Procedure Performing Provider Status 03/28/21 5:06 AM Chest 2 Views Frontal and Lat Terrell Galaviz; Mika (Verified) Notes: (Chest 2 Views Frontal and Lat) Reason For Exam: Shortness of Breath, Fever;Other: RESULT: Chest 2 Views Frontal and Lat Chest 2 Views Frontal and Lat Hx of Present Illness: Ear pain and congestion x 1 wk; Reason: Other:; Shortness of Breath, Fever; Clinical Question(s): Pneumonia COMPARISON: None. FINDINGS: LINES AND TUBES: None. LUNGS AND PLEURA: Clear lungs. Normal pulmonary vascularity. No pleural effusion. No pneumothorax. HEART, MEDIASTINUM AND EDGAR: Heart is normal in size. Normal upper mediastinal and hilar contour. BONES AND SOFT TISSUES: No acute abnormality. IMPRESSION: No acute abnormality. WSN: [id number] Ordering Physician: Aby Huerta Dictated By: Isma Palomares MD Dictated Date/Time: 03/28/21 8:01 am Reviewed By: Isma Palomares MD Signed By: Isma Palomares MD Signed Date/Time: 03/28/21 8:01 am Transcribed By: ROZINA Transcribed Date/Time: 03/28/21 7:49 am Vital Signs Most recent to oldest [Reference Range]: 1 2 3 Oxygen Saturation [94-100 %] 98 % (03/28/21 5:02 AM) 98 % (03/28/21 2:25 AM) 99 % (03/28/21 12:09 AM) Pulse Rate [55-90 bpm] 112 bpm *H* (03/28/21 5:02 AM) 112 bpm *H* (03/28/21 2:25 AM) 130 bpm *H* (03/28/21 12:09 AM) Blood Pressure [90-138/55-84 mm Hg] 141/97mm Hg *H* (03/28/21 5:02 AM) 134/97mm Hg (03/28/21 2:25 AM) 133/100mm Hg (03/28/21 12:09 AM) Respiratory Rate [16-30 br/min] 20 br/min (03/28/21 5:02 AM) 15 br/min *L* (03/28/21 2:25 AM) 18 br/min (03/27/21 11:49 PM) Temperature [96.8-100.4 DegF] 99.0 DegF (03/28/21 5:02 AM) 99 DegF (03/28/21 2:25 AM) 99.2 DegF (03/28/21 12:09 AM) Mode of Delivery (Oxygen) Room air (03/28/21 5:02 AM) Room air (03/28/21 2:25 AM) Room air (03/28/21 12:09 AM) Blood pressure sites Arm, left (03/28/21 2:25 AM) Arm, left (03/28/21 12:09 AM) Temperature Route Oral (03/28/21 5:02 AM) Oral (03/28/21 2:25 AM) Oral (03/28/21 12:09 AM) Social History Social History Type Response Smoking Status Current every day debbie oker; Type: Cigarettes; Tobacco use times per day: 2 OR 3 CIGS/DAY; entered on: 07/03/13 Sex
--- OUTSIDE RECORDS SUMMARY | 2023-01-15 17:53 | XMS_ITS | Continuity of Care Document ---
Author Name Unknown Organization [facility] Address [address] [place] [address]- Care Team Providers Care Supervisor Beet End Name Role Phone Alejandro Marie MD Primary Care Physician [place] [facility] [place](s): 08/09/21 - 09/08/21 [facility] [address] [place] [id number] Allergies, Adverse Reactions, Alerts [...] 02/17/19 Stop Date: 02/22/19 Status: Ordered Pen [place], 32 G x 4 mm BD Ultra [...]
[2023-01-15] MEDS: 0.9 % Sodium Chloride 1,000 ML 999 ML IV ×2 (18:14→18:48)
[2023-01-15] MEDS: Ketorolac Tromethamine 15 MG/ML VIAL IVPUSH (18:45)
[2023-01-15] MEDS: ondansetron HCL 4 MG/2 ML VIAL IVPUSH (18:46)
[2023-01-15 19:31] VITALS: BP 101/65; PULSE 73; RESP 16; TEMP 37; O2SAT 96
[2023-01-15] MEDS: iohexoL 350 MG/ML 100 ML INFUS..BTL IV (20:47)
[2023-01-15] MEDS: cefTRIAXone sodium 1 GM in 0.9 % Sodium Chloride 50 ML IV (22:11)
[2023-01-15 22:29] VITALS: BP 113/73; PULSE 70; RESP 16; TEMP 37.3; O2SAT 98
[2023-01-15 23:19] LABS: Glucose, Whole Blood 324 mg/dL (60-115)
== END 2023-01-15 23:29 | disposition home or self-care (01) ==
PROVIDERS: Physician Assistant; Emergency Provider Emergency Medicine; PCP Internal Medicine
DX: N12 Tubulo-interstitial nephritis, not specified as acute or chronic (principal); E11.65 Type 2 diabetes mellitus with hyperglycemia; Z87.442 Personal history of urinary calculi; Z79.84 Long term (current) use of oral hypoglycemic drugs
CPT/HCPCS: 36415; 74177; 80048; 80076; 81001; 81025; 82947; 83036; 83605; 83735; 85025; 87040; 87086; 96361; 96365; 96375; 99284; 99285; J0696; J1885; J2405; Q9967

== ENCOUNTER 2023-02-04 01:06 | Emergency (ER) | payer OTHER, SELFPAY ==
[2023-02-04 01:14] VITALS: BP 141/86; PULSE 95; RESP 17; TEMP 36.5; O2SAT 99; BMI 27.4
[2023-02-04 01:48] LABS: MANUAL DIFF FLAG NO
[2023-02-04 01:49] LABS: Basophils Percent Auto 0.2 % (0-2); Eosinophils Absolute Auto 0.3 X10*3/uL (0.0-0.4); Eosinophils Percent Auto 2.8 % (0-4); Hematocrit 42.3 % (37.0-47.0); Hemoglobin 13.7 g/dl (12.0-16.0); Imm Gran Abs Auto 0.03 X10*3/uL (0.00-0.03); Imm Gran Pct Auto 0.3 % (0.0-0.4); Lymphocytes Absolute Auto 2.4 X10*3/uL (1.2-4.9); Lymphocytes Percent Auto 20.7 % (20-40); Mean Corpuscular HGB Conc 32.4 g/dl (31.0-35.0); Mean Corpuscular Hemoglobin 28.6 pg (27.0-33.0); Mean Corpuscular Volume 88.3 fL (80.0-98.0); Mean Platelet Volume 10.4 fL (9.4-12.3); Monocytes Absolute Auto 0.6 X10*3/uL (0.1-1.2); Monocytes Percent Auto 4.8 % (2-11); Neutrophils Absolute Auto 8.4 x10*3/uL (2.0-8.3); Neutrophils Percent Auto 71.2 % (45-73); Platelet Count 260 X10*3/uL (160-400); Red Blood Count 4.79 X10*6/uL (4.20-5.50); White Blood Count 11.7 X10*3/uL (4.8-10.8)
[2023-02-04 01:50] LABS: Appearance Urine Cloudy; Color Urine Yellow; Glucose Urine UA Negative (Negative); Leukocyte Esterase Urine Large (3+) (Negative); Nitrite Urine Negative (Negative); PH 5.5 (5.0-9.0); UMIC TRIGGER UACC YES; Urine Blood Large (3+) (Negative); Urine Ketones Negative (Negative); Urine Protein 30 (1+) mg/dL (Neg-Trace)
[2023-02-04 01:52] LABS: Bacteria Urine None Seen (None Seen); Hyaline Casts Urine 0-2 /LPF (0-2); Squamous Epithelial Cell Urine 0-2 /HPF (0-2); UACC Culture Trigger YES; WBC Urine >50 /HPF (0-5)
[2023-02-04 02:00] LABS: Lactic Acid 1.4 mmol/L (0.5-2.0)
[2023-02-04 03:30] LABS: Alanine Aminotransferase 39 U/L (0-31); Albumin Level 4.3 g/dL (3.5-5.0); Alkaline Phosphatase 97 U/L (39-117); Anion Gap 17 (12-20); Aspartate Amino Transferase 25 U/L (5-31); Bilirubin Direct 0.1 mg/dL (0.0-0.5); Bilirubin Total 0.3 mg/dL (0.0-1.0); Blood Urea Nitrogen 9 mg/dL (9-16); Carbon Dioxide 23 mmol/L (22-29); Chloride 103 mmol/L (96-108); Creatinine Clr Calc Pharmacy 85.1; Estimated Glomerular Filt Rate > 60; Glucose Random 246 mg/dL (60-115); Lipase 31 U/L (8-78); Sodium 139 mmol/L (135-145); Total Protein 7.1 g/dL (6.5-8.0)
--- NOTE | 2023-02-04 05:47 | ED_ITS ---
HPI - Female Genitourinary General Chief complaint: Urogenital-Female Stated complaint: UTI Time Seen by Provider: 02/04/23 05:46 Source: patient and family (, J Luis) Mode of arrival: ambulatory Limitations: no limitations History of Present Illness HPI Narrative: 42-year-old female who presents emergency department for evaluation of urinary frequency, dysuria, right flank pain x3 days. The patient was seen on 01/15/2023 for similar symptoms. She was treated with Levaquin for 5 days. She states that her symptoms improved but over the last 2 days her symptoms have come back. She states she has been taking naproxen without any relief for symptoms. She denied fever, chills, vomiting, diarrhea. States she did have nausea. Related Data Previous Rx's Medication Instructions Recorded ciprofloxacin HCl 500 mg tablet 500 mg PO Q12H 5 days #10 tabs 05/13/21 (Cipro) phenazopyridine 200 mg tablet 200 mg PO TID PRN pain 6 doses #6 05/13/21 (Pyridium) tabs levofloxacin 750 mg tablet 750 mg PO DAILY 5 days #5 tabs 01/15/23 naproxen 500 mg tablet 500 mg PO BID PRN pain 7 days #14 01/15/23 tabs cefuroxime axetil 250 mg tablet 250 mg PO Q12H PRN Burning, 02/04/23 dysuria #10 tabs phenazopyridine 200 mg tablet 200 mg PO TID PRN Burning with 02/04/23 (Pyridium) urination 3 days #9 tabs Allergies Allergy/AdvReac Type Severity Reaction Status Date / Time No Known Allergies Allergy Verified 05/13/21 21:46 Review of Systems 2 Review of Systems: Yes all other systems are reviewed and are negative [facility] Past Medical History [facility] Narrative: Past medical history: Diabetes mellitus, fibromyalgia. Surgical history: Cholecystectomy and kidney stone removal. Social history: Patient does smoke cigarettes. She denies alcohol use. She denies drug use. Social History Social History Alcohol intake: never Advance Directives: No Advance Directives Information Provided: Yes Patient : No Physical Exam 2 Vital Signs: Vital Signs: Last Vital Signs Temp 97.7 F 02/04/23 01:14 Pulse 91 02/04/23 05:56 Resp 18 02/04/23 05:56 BP 139/84 02/04/23 05:56 Pulse Ox 98 02/04/23 05:56 O2 Del Method Room Air 02/04/23 05:56 BMI result Body Mass Index 27.4 Vital signs were normal. Exam: General: Awake, alert in no distress Head: Normocephalic, atraumatic EENT: PERRL, Lids normal, sclera normal, conjunctiva normal, nose normal , ears normal, throat without erythema or exudates Neck: Supple, no adenopathy, trachea midline and nontender Lung: breath sounds symmetric, no wheezing, rales or rhonchi Chest: symmetric movement, nontender Heart: regular rate and rhythm, normal S1, S2 no murmurs or rubs Abdomen: soft, moderate suprapubic tenderness, nondistended, normal bowel sounds Back: no vertebral tenderness, mild right CVAT Extremities: no deformities, moves all extremities symmetrically Skin: no rashes, no lesion, normal color and warmth Neuro: Awake, alert, oriented, normal speech, cranial nerves intact, moves all extremities symmetrically Psych: Pleasant, cooperative Medications Administered Discontinued Medications Generic Name Dose Route Start Last Admin Trade Name Freq PRN Reason Stop Dose Admin Cefuroxime Axetil 250 mg 02/04/23 06:06 02/04/23 06:10 Cefuroxime Axetil 250 Mg Tablet PO 02/04/23 06:07 250 mg ONCE ONE Administration Phenazopyridine HCl 200 mg 02/04/23 06:06 02/04/23 06:10 Phenazopyridine Hcl 200 Mg Tablet PO 02/04/23 06:07 200 mg ONCE ONE Administration Medical Decision Making Medical Decision Making [facility] Narrative: 42-year-old female who presents emergency department for evaluation 2 days of frequency, urgency, dysuria and right flank pain. She had no fever chills but did have nausea with no vomiting. Patient's physical examination did reveal suprapubic tenderness and right flank CVA tenderness . Following evaluation was ordered by me: CBC, BMP liver panel, lipase, lactic acid, blood cultures x2, urinalysis. The patient's CBC was unremarkable. CMP did reveal an elevated glucose of 246. Lipase was normal. Urinalysis revealed 3+ blood, positive leukocyte esterase, negative nitrates. Microscopic revealed 6-10 RBCs, greater than 50 WBCs but no bacteria. The patient's previous urine culture and blood cultures on 01/15/2023 revealed no growth. At this time, clinically believe the patient may have a urinary tract infection but I do not think that she has pyelonephritis. Patient was started on cefuroxime 250 mg q.12 hours x5 days and given her 1st dose here in the emergency department. She was also started on Pyridium 200 mg 3 times a day as needed for dysuria x3 days and given her 1st dose here in the emergency department. Patient have an inflammatory cystitis and I did tell her that she should follow- up with our urologist at to follow-up on the urine culture and to determine if she needs further testing if the urine culture is negative. Differential Diagnosis Differential Diagnoses: The differential diagnosis associated with the presentation includes Differential diagnosis includes was not limited to acute cystitis, acute pyelonephritis, inflammatory cystitis, interstitial cystitis, electrolyte abnormalities, anemia Admission/Observation Consideration of admission/observation: Escalation of care including admission/observation considered Lab Data [facility] Lab Attestation statement: I reviewed the patient's lab results. Please see [facility] 02/04/23 01:38 02/04/23 01:19 Labs: Lab Results 02/04/23 02/04/23 02/04/23 Range/Units 01:19 01:38 06:12 WBC 11.7 H (4.8-10.8) X10*3/uL RBC 4.79 (4.20-5.50) X10*6/uL Hgb 13.7 (12.0-16.0) g/dl Hct 42.3 (37.0-47.0) % MCV 88.3 (80.0-98.0) fL MCH 28.6 (27.0-33.0) pg MCHC 32.4 (31.0-35.0) g/dl RDW 13.0 (11.0-16.0) % Plt Count 260 (160-400) X10*3/uL MPV 10.4 (9.4-12.3) fL Immature Gran % (Auto) 0.3 (0.0-0.4) % Neut % (Auto) 71.2 (45-73) % Lymph % (Auto) 20.7 (20-40) % [place] % (Auto) 4.8 (2-11) % Eos % (Auto) 2.8 (0-4) % Baso % (Auto) 0.2 (0-2) % Lymph # (Auto) 2.4 (1.2-4.9) X10*3/uL [place] # (Auto) 0.6 (0.1-1.2) X10*3/uL Eos # (Auto) 0.3 (0.0-0.4) X10*3/uL Baso # (Auto) 0.0 (0.0-0.2) X10*3/uL Abs Immat Gran (auto) 0.03 (0.00-0.03) X10*3/uL Absolute Neuts (auto) 8.4 H (2.0-8.3) x10*3/uL Absolute Nucleated RBC 0.000 (0.0-0.012) X10*3/uL Nucleated RBC % (auto) 0.0 (0.0-0.2) /100WBC Sodium 139 (135-145) mmol/L Potassium 4.0 (3.3-5.1) mmol/L Chloride 103 (96-108) mmol/L Carbon Dioxide 23 (22-29) mmol/L Anion Gap 17 (12-20) BUN 9 (9-16) mg/dL Creatinine 0.88 (0.5-1.4) mg/dL Estim Creat Clear Calc 85.1 Estimated GFR > 60 Random Glucose 246 H (60-115) mg/dL Lactic Acid 1.4 (0.5-2.0) mmol/L Calcium 10.0 (8.4-10.2) mg/dL Total Bilirubin 0.3 (0.0-1.0) mg/dL Direct Bilirubin 0.1 (0.0-0.5) mg/dL AST 25 (5-31) U/L ALT 39 H (0-31) U/L Alkaline Phosphatase 97 (39-117) U/L Total Protein 7.1 (6.5-8.0) g/dL Albumin 4.3 (3.5-5.0) g/dL Lipase 31 (8-78) U/L Urine Color Yellow Urine Appearance Cloudy Urine pH 5.5 (5.0-9.0) Ur Specific [place] 1.010 (1.005-1.025) Urine Protein 30 (1+) H (Neg-Trace) mg/dL Urine Glucose (UA) Negative (Negative) mg/dL Urine Ketones Negative (Negative) mg/dL Urine Blood Large (3+) H (Negative) Urine Nitrite Negative (Negative) Ur Leukocyte Esterase Large (3+) H (Negative) Urine RBC 6-10 H (0-2) /HPF Urine WBC >50 H (0-5) /HPF Ur Squamous Epith Cells 0-2 (0-2) /HPF Urine Bacteria None Seen (None Seen) Hyaline Casts 0-2 (0-2) /LPF Chlam trachomat DNA PCR NOT DETECTED (Not Detect.) N.gonorrhoeae DNA (PCR) NOT DETECTED (Not Detect.) Independent Historian Clinical information obtained from an independent historian. History obtained from or confirmed by: Spouse Prescription Management I considered prescription management with: Antibiotic Chronic Conditions Patient?s care impacted by: Diabetes and Other (Fibromyalgia) Discharge Plan Discharge Clinical Impression: Dysuria Urinary tract infection Qualifiers: Urinary tract infection type: acute cystitis Patient Disposition: Home, Self-Care Instructions: Urinary Tract Infection in Women (ED) Additional Instructions: Your blood work was normal except for an elevated glucose of 246. Your urine did reveal white blood cells but no bacteria. Your urine culture from 01/15/2023 did not grow any bacteria. Today's urine will also be culture to see if you grow bacteria. I am also testing you for gonorrhea and chlamydia-this result will not be back for several days. I am treating you for urinary tract infection with cefuroxime 250 mg, 1 pill every 12 hours for 5 days. Take Pyridium 200 mg pills, 1 pill 3 times a day for 3 days, this is a pill that will help with the burning sensation and will change the color of a urine-will be bright orange. I want you to follow-up with our urologist 1-2 weeks, if your culture is negative then you need to be evaluated for inflammatory cystitis or other causes of your symptoms. Follow-up with your doctor in 2 days. Please return to the emergency department if your symptoms get worse or if you develop any symptoms that are concerning to you. Please see the work note Prescriptions: New cefuroxime axetil 250 mg tablet 250 mg PO Q12H PRN (Reason: Burning, dysuria) Qty: 10 0RF phenazopyridine [Pyridium] 200 mg tablet 200 mg PO TID PRN (Reason: Burning with urination) 3 Days Qty: 9 0RF No Action ciprofloxacin HCl [Cipro] 500 mg tablet 500 mg PO Q12H 5 Days Qty: 10 0RF phenazopyridine [Pyridium] 200 mg tablet 200 mg PO TID PRN (Reason: pain) Qty: 6 0RF levofloxacin 750 mg tablet 750 mg PO DAILY 5 Days Qty: 5 0RF naproxen 500 mg tablet 500 mg PO BID PRN (Reason: pain) 7 Days Qty: 14 0RF Referrals: Popeye Brandon MD [Physician] - 2 weeks Stand Alone Forms: Work/School Release Interventions: ED Discharge Assessment Last Done: 02/04/23 06:31 Discharge Date/Time: 02/04/23 06:34
[2023-02-04 05:56] VITALS: BP 139/84; PULSE 91; RESP 18; O2SAT 98
[2023-02-04] MEDS: Phenazopyridine HCL 200 MG TABLET PO (06:10)
--- NOTE | 2023-02-04 06:21 | PC.NURSE ---
medicated per Mar, Lab collected and sent.
--- NOTE | 2023-02-04 06:33 | PC.NURSE ---
Provider into assess pt and discuss labs results. Reviewed discharge instructions with pt. pt verbalized understanding.
[2023-02-04 08:00] LABS: CT PCR NOT DETECTED (Not Detect.); NG PCR NOT DETECTED (Not Detect.)
== END 2023-02-04 06:34 | disposition home or self-care (01) ==
PROVIDERS: Emergency Provider Emergency Medicine Emergency Medical Services; PCP Internal Medicine
DX: N39.0 Urinary tract infection, site not specified (principal); R35.0 Frequency of micturition; R30.0 Dysuria; Z79.899 Other long term (current) drug therapy
CPT/HCPCS: 0353U; 36415; 80048; 80076; 81001; 83605; 83690; 85025; 87040; 87086; 87088; 87186; 99283; 99284

== ENCOUNTER 2023-05-08 12:43 | Emergency (ER) | payer OTHER, SELFPAY ==
[2023-05-08 13:17] VITALS: BP 130/90; PULSE 90; RESP 18; TEMP 36.3; O2SAT 96; BMI 26.0
--- NOTE | 2023-05-08 13:17 | ED.FEMALEGU ---
HPI - Female Genitourinary General Chief complaint: Urogenital-Female Stated complaint: Bladder Pain Time Seen by Provider: 05/08/23 17:52 Source: patient, RN notes reviewed and old records reviewed Mode of arrival: ambulatory Limitations: no limitations History of Present Illness HPI Narrative: 42-year-old female presents for evaluation of lower abdominal pain burning with urination. Patient reports that she was seen here in February, few months ago and diagnosed with interstitial cystitis. She is due to see Urology but is not appointment until May 23 She states that she occasionally has similar symptoms of burning with urination and frequency that resolved after a day or so She states that on this occasion her symptoms started 3 or 4 days ago She has been using [id number] azo without any improvement Her symptoms have been persistent Denies any fevers, chills No other complaints or concerns at this time Related Data Previous Rx's Medication Instructions Recorded ciprofloxacin HCl 500 mg tablet 500 mg PO Q12H 5 days #10 tabs 05/13/21 (Cipro) phenazopyridine 200 mg tablet 200 mg PO TID PRN pain 6 doses #6 05/13/21 (Pyridium) tabs levofloxacin 750 mg tablet 750 mg PO DAILY 5 days #5 tabs 01/15/23 naproxen 500 mg tablet 500 mg PO BID PRN pain 7 days #14 01/15/23 tabs cefuroxime axetil 250 mg tablet 250 mg PO Q12H PRN Burning, 02/04/23 dysuria #10 tabs phenazopyridine 200 mg tablet 200 mg PO TID PRN Burning with 02/04/23 (Pyridium) urination 3 days #9 tabs cefuroxime axetil 250 mg tablet 250 mg PO Q12H #10 tabs 05/08/23 phenazopyridine 200 mg tablet 200 mg PO TID PRN pain 6 doses #6 05/08/23 (Pyridium) tabs Allergies Allergy/AdvReac Type Severity Reaction Status Date / Time No Known Allergies Allergy Verified 05/08/23 13:20 Review of Systems Constitutional: Constitutional: Denies chills and Denies fever(s) Eyes: Eyes: Denies blurry vision ENT: Denies sore throat Cardiovascular: Cardiovascular: Denies chest pain and Denies dyspnea Respiratory: Respiratory: Denies cough and Denies dyspnea Gastrointestinal: Gastrointestinal: Reports abdominal pain, Denies nausea and Denies vomiting Genitourinary: Genitourinary: Reports difficulty voiding, Reports dysuria and Reports urinary urgency Musculoskeletal: Musculoskeletal: Denies back pain Integumentary/Breasts: Skin/Breast: Denies rash PMFSH Social History Social History Alcohol intake: never Physical Exam Vital Signs: Vital Signs: Last Vital Signs Temp 97.4 F 05/08/23 13:17 Pulse 90 05/08/23 13:17 Resp 18 05/08/23 13:17 BP 130/90 H 05/08/23 13:17 Pulse Ox 96 05/08/23 13:17 O2 Del Method Room Air 05/08/23 13:17 BMI result Body Mass Index 26.0 Const: General: healthy appearing, comfortable, no acute distress, alert and awake Nutritional Appearance: well nourished Orientation/consciousness: patient oriented x3 HEENT: Head: Yes normocephalic and Yes atraumatic Eyes: Eyelids: Yes eyelids normal Conjunctivae: conjunctivae normal Sclerae: sclerae normal Corneas: corneas normal Pupils: Equal, round and reactive pupils present EOM: EOMs intact bilaterally Neck: Neck: Yes full ROM Resp: Effort & Inspection: normal respiratory effort, able to speak in complete sentences and not labored Skin: General skin exam: elasticity normal Neuro: General: patient oriented x3 Cranial nerves: Yes Equal, round and reactive pupils present and Yes Bilaterally intact EOM present Cognition (Neuro): normal cognition Course Course Course Narrative: RME: 42 yo F w/PMHx interstitial cystitis presenting to the ED c/o dysuria, hematuria, passing tissue when she urinates & suprapubic abdominal pain. denies fever, N/V. denies vaginal bleeding/d/c UA, labs ordered Full HPI, ROS and PE to be performed by primary ED provider. Medical Decision Making Medical Decision Making [facility] Narrative: 42-year-old female presents for evaluation of UTI symptoms. Her UA is positive for blood, nitrates, esterase and greater than 50 white blood cells as well as 1+ bacteria. This is consistent with a urinary tract infection. Will treat with cefuroxime. Patient has a slight leukocytosis to 11.5 K with a left shift. Vital signs within normal limits. Incentive the patient was found to have a glucose of I 424. There is no evidence of DKA, her CO2 is within normal limits, and her anion gap is actually low. She has no renal function. She has a pseudo hyponatremia of 134 which is within normal limits once corrected for the elevated glucose. The hyperglycemia is likely also contributing to the patient's polyuria. Patient was offered treatment for the hyperglycemia here but would prefer to go home and take her insulin and metformin that she has not yet taken today Differential Diagnosis Differential Diagnoses: The differential diagnosis associated with the presentation includes Cystitis UTI Pyelonephritis Hyperglycemia DKA Admission/Observation Consideration of admission/observation: Escalation of care including admission/observation considered Patient was considered admission for hyperglycemia though there is no evidence of DKA and can manage at home. Lab Data [facility] Lab Attestation statement: I reviewed the patient's lab results. As above 05/08/23 14:14 05/08/23 14:14 Labs: Lab Results 05/08/23 Range/Units 14:14 WBC 11.5 H (4.8-10.8) X10*3/uL RBC 5.35 (4.20-5.50) X10*6/uL Hgb 15.4 (12.0-16.0) g/dl Hct 46.1 (37.0-47.0) % MCV 86.2 (80.0-98.0) fL MCH 28.8 (27.0-33.0) pg MCHC 33.4 (31.0-35.0) g/dl RDW 12.4 (11.0-16.0) % Plt Count 241 (160-400) X10*3/uL MPV 10.9 (9.4-12.3) fL Immature Gran % (Auto) 0.7 H (0.0-0.4) % Neut % (Auto) 75.4 H (45-73) % Lymph % (Auto) 17.0 L (20-40) % [place] % (Auto) 4.0 (2-11) % Eos % (Auto) 2.6 (0-4) % Baso % (Auto) 0.3 (0-2) % Lymph # (Auto) 2.0 (1.2-4.9) X10*3/uL [place] # (Auto) 0.5 (0.1-1.2) X10*3/uL Eos # (Auto) 0.3 (0.0-0.4) X10*3/uL Baso # (Auto) 0.0 (0.0-0.2) X10*3/uL Abs Immat Gran (auto) 0.08 H (0.00-0.03) X10*3/uL Absolute Neuts (auto) 8.7 H (2.0-8.3) x10*3/uL Absolute Nucleated RBC 0.000 (0.0-0.012) X10*3/uL Nucleated RBC % (auto) 0.0 (0.0-0.2) /100WBC Sodium 134 L (135-145) mmol/L Potassium 4.2 (3.3-5.1) mmol/L Chloride 100 (96-108) mmol/L Carbon Dioxide 28 (22-29) mmol/L Anion Gap 10 L (12-20) BUN 10 (9-16) mg/dL Creatinine 0.96 (0.5-1.4) mg/dL Estim Creat Clear Calc 76.2 Estimated GFR > 60 Random Glucose 424 H* (60-115) mg/dL Calcium 9.4 (8.4-10.2) mg/dL Magnesium 1.7 (1.6-2.6) mg/dL Total Bilirubin 0.4 (0.0-1.0) mg/dL Direct Bilirubin 0.1 (0.0-0.5) mg/dL AST 25 (5-31) U/L ALT 43 H (0-31) U/L Alkaline Phosphatase 137 H (39-117) U/L Total Protein 7.3 (6.5-8.0) g/dL Albumin 4.2 (3.5-5.0) g/dL Lipase 62 (8-78) U/L Beta-Hydroxybutyrate 0.18 (0.02-0.27) mmol/L Urine Color [place] Urine Appearance Hazy Urine pH 5.5 (5.0-9.0) Ur Specific [place] 1.020 (1.005-1.025) Urine Protein 30 (1+) H (Neg-Trace) mg/dL Urine Glucose (UA) >=1000 H (Negative) mg/dL Urine Ketones 15 (Negative) mg/dL Urine Blood Moderate (2+) H (Negative) Urine Nitrite Positive H (Negative) Ur Leukocyte Esterase Trace H (Negative) Urine RBC 0-2 (0-2) /HPF Urine WBC >50 (0-5) /HPF Ur Squamous Epith Cells 6-10 (0-2) /HPF Urine Bacteria 1+ (None Seen) Hyaline Casts 0-2 (0-2) /LPF Discharge Plan Discharge Clinical Impression: Urinary tract infection Patient Disposition: Home, Self-Care Instructions: Urinary Tract Infection in Women (ED) Additional Instructions: You have a urinary tract infection Take the antibiotic twice daily for the next 5 days Use Pyridium as directed Drink lots of fluids Follow-up with urology as place Prescriptions: New cefuroxime axetil 250 mg tablet 250 mg PO Q12H Qty: 10 0RF phenazopyridine [Pyridium] 200 mg tablet 200 mg PO TID PRN (Reason: pain) Qty: 6 0RF No Action ciprofloxacin HCl [Cipro] 500 mg tablet 500 mg PO Q12H 5 Days Qty: 10 0RF phenazopyridine [Pyridium] 200 mg tablet 200 mg PO TID PRN (Reason: pain) Qty: 6 0RF levofloxacin 750 mg tablet 750 mg PO DAILY 5 Days Qty: 5 0RF naproxen 500 mg tablet 500 mg PO BID PRN (Reason: pain) 7 Days Qty: 14 0RF cefuroxime axetil 250 mg tablet 250 mg PO Q12H PRN (Reason: Burning, dysuria) Qty: 10 0RF phenazopyridine [Pyridium] 200 mg tablet 200 mg PO TID PRN (Reason: Burning with urination) 3 Days Qty: 9 0RF
[2023-05-08 18:06] VITALS: BP 125/85; PULSE 100; RESP 16; O2SAT 97
== END 2023-05-08 18:22 | disposition home or self-care (01) ==
LOC: HO.ED 18:16
PROVIDERS: Emergency Provider Emergency Medicine
DX: N39.0 Urinary tract infection, site not specified (principal); R10.30 Lower abdominal pain, unspecified; R30.0 Dysuria; R35.0 Frequency of micturition
CPT/HCPCS: 36415; 80048; 80076; 81001; 82010; 82947; 83690; 83735; 85025; 87086; 87088; 87186; 99283

== ENCOUNTER 2023-07-04 14:20 | Outpatient (AMB) | payer OTHER, SELFPAY ==
--- NOTE | 2023-07-04 14:37 | A.OFFVIS_ITS ---
Intake Intake Visit Reasons: recurrent UTI/dysuria/ Intake Note: New Patient presents today to establish treatment for Dysuria Meds- None Allergies to Antibiotic- No Known Allergies Blood Thinner- None Patient Symptoms: Patient stated she had an urine culture and tested negative for bacteria and she was told she may have Interstitial cystitis. Reviewed medications, patient stated she is not taking any medications. Chronometer Assembler Required: No Accompanied by: Allergies No Known Allergies Allergy (Verified 07/04/23 14:43) HPI HPI Comments History of Present Illness Details La is a pleasant female. She is a patient of . She is seen for following urologic conditions - recurrent UTI Recurrent UTI in setting of poorly controlled diabetes Multiple presentations to emergency room for recurrent UTI. Baseline poorly controlled diabetes HbA1c 01/26 13.0 Episode of pyelonephritis January 2023 La only recently aggressively started managing her diabetes. Is on combination of Lantus with insulin. Today on UA has no sugar in her urine. On every other exam has had 3+ sugar consistent with diabetic fingerstick sugar over 160. In documentation had been as high as 400. Given the minimal symptoms that she has today while she is on good control I have encouraged her to maintain her diabetic control. We can review her in 6 months to ensure minimal symptoms. [facility] Social History Alcohol intake: never Review of Systems Const Denies chills and Denies fever(s) Card Reports no additional complaints and Denies syncope Resp Denies cough GI Denies abdominal pain and Denies heartburn Reports as per HPI and Denies change in libido Neuro Denies syncope Psych Denies change in libido Endo Denies change in libido Physical Exam Const General: cooperative, healthy appearing, comfortable and no acute distress Orientation/consciousness: patient oriented x3 HEENT Face and sinus: Yes normal facial exam Mouth: moist mucous membranes Neck Neck: Yes normal visual inspection, Yes full ROM and Yes trachea midline Chest Chest palpation & inspection: normal inspection of the chest Resp Effort & Inspection: normal respiratory effort, able to speak in complete sentences and no respiratory distress GI Inspection: Yes normal to inspection Back/Spine/Pelvis Cervical Spine: normal cervical lordosis Thoracic/Lumbar Spine: thoracic and lumbar spine normal to inspection Skin General skin exam: no rashes or lesions noted Neuro General: patient oriented x3, gait normal, tone normal and moves all extremities Extrem General: Yes normal to inspection and Yes capillary refill normal Results AMB Urinalysis, Automated UA Leukoctes 0 [place]/uL Last Edit by Tonya Rodriguezisabela Rodriguez [facility] on 07/04/23 14 :54 UA Nitrite Negative Last Edit [facility] on 07/04/23 14: 54 UA Urobilinogen 0.2 mg/dL Last Edit by Tonya Rodriguezisabela Rodriguez [facility] on 4 14:54 UA Protein 0 mg/dL Last Edit by [facility], [facility] on 07/04/23 14:54 UA pH 6.0 Last Edit by [facility] on 07/04/23 14:54 UA Blood 0 Hi/uL [facility] on 07/04/23 14:54 UA Specific [place] 1.005 Last Edit by Tonya Rodriguezisabela Rodriguez [facility] on 14:54 UA Ketone Negative Last Edit by [facility], [facility] on 07/04/23 14:5 4 UA Bilirubin 0 mg/dL Last Edit by [facility] on 07/04/23 14: 54 UA Glucose 0 mg/dL Last Edit by [facility] on 07/04/23 14:54 Assessment & Plan Assessment & Plan (1) Pyelonephritis: Code(s): N12 - Tubulo-interstitial nephritis, not specified as acute or chronic (2) Urinary urgency: Code(s): R39.15 - Urgency of urination Plan Six-month follow-up nurse-practitioner Orders: Orders AMB Urinalysis Automated Today R33.9 - Retention of urine, unspecified Patient Instructions: Imaging studies, laboratory and physical exam results were discussed and reviewed in detail. No major barriers to patient understanding were identified. An opportunity to ask questions regarding the treatment plan was provided. All questions were answered. The patient expressed understanding and agreement with the above treatment plan. The patient is aware they should contact our office by phone for worsening of their current condition or the appearance of new urologic symptoms. Compliance is encouraged with any medications and followup testing that is ordered. It is a privilege to participate in the urologic care of your patient. If you have any questions or concerns regarding treatment for the above conditions, or other urologic issues, please do not hesitate to contact me. The office telephone contact is [phone]. This note is constructed using voice recognition software. While every effort has been made to ensure accuracy belt and link shop supervisor errors may have been included. Yours sincerely, Dr Popeye Brandon MD, [facility] - Urology Providers of Expert, Compassionate Care for the Genitourinary System Coding Level of Care Code New Pt Level 3 (46594) Diagnoses Pyelonephritis N12 Urinary urgency R39.15
== END 2023-07-04 15:09 | disposition home or self-care (01) ==
PROVIDERS: PCP Internal Medicine; Visit Provider Urology
DX: N12 Tubulo-interstitial nephritis, not specified as acute or chronic (principal); R39.15 Urgency of urination; R33.9 Retention of urine, unspecified
CPT/HCPCS: 99203

== ENCOUNTER → 2023-07-04 14:20 | Outpatient (BNVA) | payer OTHER, SELFPAY | PROVIDERS: PCP Internal Medicine; Visit Provider Urology | DX: N12 Tubulo-interstitial nephritis, not specified as acute or chronic (principal); R39.15 Urgency of urination | CPT/HCPCS: 81003; 99202 ==

== ENCOUNTER 2025-03-11 08:03 | Outpatient (AMB) | payer OTHER, SELFPAY ==
[2025-03-11 08:17] VITALS: BP 142/84; PULSE 100; RESP 16; O2SAT 98; BMI 22.6
--- NOTE | 2025-03-11 08:17 | MHC.OFFVIS ---
Vital Signs 03/11/25 08:17 Height 5 ft 6 in Weight 140 lb BMI 22.6 BP 142/84 H Position Sitting Respiration 16 Pulse 100 Pulse Source Pulse Oximeter Pulse Oximetry (%) 98 Oxygen Delivery Method Room Air Intake Visit Reasons: RIGHT THIGH PAIN Armature Balancer Required: No Accompanied by: Life Partner Allergies No Known Allergies Allergy (Verified 03/11/25 08:20) HPI Comments Details: La is very pleasant 44 years old female who presents in my office with complains on pain all over the body. He reports pain in the bilateral lower extremities pain in the right shoulder pain in the bilateral hips pain in the lower back and pain in the middle of her chest. She reported that she has suffering from fibromyalgia for many years however recently month ago she started to feel pain in bilateral hips with radiation of the pain down to bilateral lower extremities on the lateral sides. She reports that she was prescribed meloxicam and gabapentin for fibromyalgia. Because of her pain she can not sleep normally can not do activities of daily living she is able to take care of herself but she is not able to function normally. She is working full-time in 2 jobs. 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 She reports that heat application alleviate her pain and movements make her pain worse. In terms of tissue damage she describes her pain as throbbing, shooting, stabbing, sharp, cutting, pinching, crushing, tugging, wrenching, hot burning, searing, stinging, hurting, heavy, tiring, exhausting, sickening, suffocating, punishing, killing, spreading, piercing, tight, squeezing sensation. She had x-ray of bilateral hips done 2 months ago those results are not available for me they were done at [facility]. Physical therapy she tried for fibromyalgia years ago and [facility] physical therapy she tried for bilateral hip pain. She also prescribe tramadol p.r.n. for her pain. Her past medical history significant for headaches, fatigue, diabetes which is poorly controlled, on the lab work presented with the patient's referral note there is random glucose 381. Hemoglobin A1c is not available for me. , and history of gallstones. Past surgical history significant for LEEP procedure gallbladder removal surgery and carpal tunnel surgery. She admits smoking cigarettes, denies drinking alcohol, she drinks 1 coffee a day and she denies recreational drugs. [facility] Social History Alcohol intake: never Review of Systems Const All systems reviewed & are unremarkable except as noted in HPI and below ENT Reports Normal hearing present Neuro Reports Normal hearing present, Denies Abnormal speech present and Denies Sensory deficit (Neuro) Physical Exam Vital Signs: Last Vital Signs Pulse 100 03/11/25 08:17 Resp 16 03/11/25 08:17 BP 142/84 H 03/11/25 08:17 Pulse Ox 98 03/11/25 08:17 Oxygen Delivery Method Room Air 03/11/25 08:17 BMI result Body Mass Index 22.6 Const General: no acute distress and tired appearing Nutritional Appearance: cachectic and underweight Orientation/consciousness: patient oriented x3 Limitations: no limitations Eyes General: appearance normal, both eyes and all related structures Pupils: Equal, round and reactive pupils present EOM: EOMs intact bilaterally Neck Neck: Yes full ROM Chest Chest palpation & inspection: normal inspection of the chest Resp Effort & Inspection: normal respiratory effort, able to speak in complete sentences, normal respiratory pattern, no audible wheezes and no cough Cardio Jugular venous distension: no JVD GI Inspection: Yes normal to inspection Back/Spine/Pelvis Other: Spike test is negative bilaterally, Neuro General: patient oriented x3 and gait normal Cranial nerves: Yes CN's II-XII intact bilaterally, Yes Equal, round and reactive pupils present, Yes Normal hearing present and Yes Ability to bilaterally elevate shoulders present Speech: No Abnormal speech present Gait exam (Neuro): Normal gait present Motor exam (neuro): 5/5 motor strength present throughout Sensory Exam: No Sensory deficit (Neuro) Extrem Other: Good range of motion of the bilateral hip joints. Lateral rotation and medial rotation of the bilateral hips cause discomfort more on the right and less on the left. Tenderness on palpation in bilateral trochanters. General: No pedal edema Psych Speech and movement: Normal speech and movement present Affect: normal affect Attitude: cooperative Thought process: Normal thought process present Thought content: Normal thought content present Insight: Good insight present (Psych) Judgement: Good judgement present (Psych) Assessment & Plan Assessment & Plan (1) Trochanteric bursitis of both hips: Code(s): M70.61 - Trochanteric bursitis, right hip; M70.62 - Trochanteric bursitis, left hip Category: Medical (2) Iliotibial band syndrome: Code(s): M76.30 - Iliotibial band syndrome, unspecified leg Category: Medical (3) Bilateral hip joint arthritis: Code(s): M16.0 - Bilateral primary osteoarthritis of hip Category: Medical (4) Fibromyalgia: Code(s): M79.7 - Fibromyalgia Category: Medical (5) Chronic pain syndrome: Code(s): G89.4 - Chronic pain syndrome Category: Medical Plan I explained to the patient that her condition most likely related to arthritis of multiple sites. Her pain in bilateral hips radiating down on the lateral thighs most likely result of iliotibial band syndrome and trochanteric bursitis bilateral. I sent her for physical therapy to treat this condition. To treat her fibromyalgia I will increase the dose of gabapentin to 300 mg t.i.d.. She reports no side effects of the gabapentin. She reports mild tiredness on gabapentin and I recommended her to take bigger dose at night dividing capsule by half. I also start her on small dose of baclofen 5 mg t.i.d.. I explained to the patient that the very moment she will submit for my attention the reports of the hip x-rays I will schedule her for right and after that for the left hip joint steroid injections. At this time the reports are not available for me and I do not want to subject her for yet another x-ray of the hip joints. Otherwise I will see her in 1 month. Orders: Orders PT Evaluation and Treatment Today M16.0 - Bilateral primary osteoarthritis of hip, M70.61 - Trochanteric bursitis, right hip, M70.62 - Trochanteric bursitis, left hip, M76.30 - Iliotibial band syndrome, unspecified leg Medications: New baclofen 5 mg PO TID 90 tabs 6RF 30 days gabapentin 300 mg PO TID 90 caps 8RF 30 days Coding Level of Care Code New Pt Level 3 (91026) Diagnoses Trochanteric bursitis of both hips M70.61; M70.62 Iliotibial band syndrome M76.30 Bilateral hip joint arthritis M16.0 Fibromyalgia M79.7 Chronic pain syndrome G89.4
--- OUTSIDE RECORDS SUMMARY | 2025-03-11 08:17 | XMS_ITS ---
Author Name [facility] [[email or web address]]P Organization Unknown Care Team Organization Name Specialty Phone Email Start Date End Da rebekah [facility] REBECA STARR Primary Care 03/13/2022 12/23/19 24
--- OUTSIDE RECORDS SUMMARY | 2025-03-11 08:17 | XMS_ITS | Data Portability ---
Author Organization [facility] [id number] Address [address] [place] [address] Care Team Providers Care Resident Service Coordinator Name Role Phone MATTY JOSE Primary Care Provider Assessment No assessment recorded. Plan of Treatment Reminders Order Date Submit Date Provider Last Modified By Organization Details Last Modified Time Details Appointments None recorded. Lab None recorded. Referral None recorded. Procedures None recorded. Surgeries None recorded. Imaging None recorded. Medication Orders clotrimazol e 10 mg lily 2022 023 [email or web address] [id number], [phone] [place], [address], 3 18:48:39 Patient TargetsNo targets recorded. Patient Instructions Encounter Date Encounter Id Patient Instructions Last Modified By Organization Details Last Modified Time 05/22/2022 [id number] candidiasis: car e instructions [email or web address] Not available 05/22/2022 14:38:13 If you develop any sore or lesions on the tongue you need to be seen again. Please drink plenty of fluids. OK to use the Rinse but do it after being on the medication for 3-4 days. Please call with any questions. [email or web address] Not available 05/22/2022 18:51:13 [email or web address] Not available 05/22/2022 14:37:37 Reason for Referral None Reported. Problems Name Problem SNOMED Code Status Onset Date Resolution Date Notes Provider Name and Address Organization Details Recorded Time Diabetes mellitus 42789706 Active VINCENT Rousseau [facility] 3 13:58:13 Migraine 42847482 Active VINCENT Rousseau RA [facility] 13:58:20 Fibromyalgia 031365045 Active LARRY ROSE RA path[facility] [place] - [facility] 13:58:31 Problem Notes None recorded. Procedures Surgical History Date Name Laterality Status Provider Name and Address Organization Details Recorded Time operation on oral cavity completed LARRY RUIZ PA - [facility] 05/22/2022 13:58:46 cholecystectomy completed LARRY JOSEPH PA - [facility] 05/22/2022 13:58:54 Carpal tunnel surgery completed LARRY JOSEPH PA - [facility] 05/22/2022 13:59:01 loop electrosurgical excision procedure of cervix completed LARRYARUN RUIZ [place] - [facility] 05/22/2022 13:59:22 Imaging Results None recorded. Procedure Notes None recorded. Medical Equipment None Reported. Allergies No known drug allergies Medications Name Sig Start Date Stop Date Status Note LastModified by Organization Details LastModified Time clotrimazol e 10 mg lily Take 1 tablet 5 times a day by oral route for 14 days. 2022 active Not Available Not Available Not Avai lable clindamycin HCl 300 mg capsule TAKE 1 CAPSULE BY MOUTH EVERY 6 HOURS UNTIL FINISHED 05/22 completed Not Available Not Available Not Available ibuprofen 800 mg tablet TAKE 1 TABLET BY MOUTH EVERY 8 HOURS NEEDED FOR PAIN 05/22 completed Not Available Not Available Not Available FreeStyle Lancets 28 gauge USE DIRECTED FOR TYPE 2 DIABETES MELLITUS TO TEST BLOOD SUGARS UP TO 3 TIMES A DAY DX 11.9 05/22 completed Not Available Not Available Not Available sumatriptan 50 mg tablet TAKE 1 TABLET BY MOUTH AT LEAST 2 HRS BETWEEN DOSES NEEDED active Not Available Not Available No t Available butalbital- acetaminoph en-caffeine 50 mg-325 mg-40 mg tablet TAKE 1 TABLET BY MOUTH EVERY DAY NEEDED FOR 30 DAYS 05/22 completed Not Available Not Available Not Available oxycodone-a cetaminophe n 5 mg-325 mg tablet TAKE 1 TAB BY MOUTH EVERY 4 HRS NEEDED FOR PAIN DONT OPERATE HEAVY MACHINERY UNDER THE INFLUENCE 05/22 completed Not Available Not Available Not Available ibuprofen 600 mg tablet TAKE 1 TABLET BY MOUTH FOUR TIMES A DAY NEEDED 05/22 completed Not Available Not Available Not Available methylpredn isolone 4 mg tablets in a dose pack TAKE 6 TABLETS ON DAY 1 DIRECTED ON PACKAGE AND DECREASE BY 1 TAB EACH DAY FOR A TOTAL OF 6 DAYS 05/22 completed Not Available Not Available Not Available metformin ER 500 mg tablet,exte nded release 24 hr TAKE 1 TABLET BY MOUTH THREE TIMES A DAY active Not Available Not Available No t Available amoxicillin 875 mg-potassiu m clavulanate 125 mg tablet TAKE 1 TABLET BY MOUTH TWICE A DAY 05/22 completed Not Available Not Available Not Available chlorhexidi ne gluconate 0.12 % mouthwash SWISH 1 CAPFUL BY MOUTH & HOLD FOR 2 MINS THEN SPIT 3 TIMES A DAY AFTER MEALS active Not Available Not Available No t Available FreeStyle Lite Strips TEST BLOOD SUGARS UP TO 3 TIMES A DAY 05/22 completed Not Available Not Available Not Available Lantus Solostar U-100 Insulin 100 unit/mL (3 mL) subcutaneou s pen INJECT MAX 40 UNITS SUBCUTANE OUSLY DAILY active Not Available Not Available No t Available Classic 28 mg iron-800 mcg tablet TAKE 1 TABLET BY MOUTH EVERY MORNING *NOT COVERED* 05/22 completed Not Available Not Available Not Available BD Irasema 2nd Gen Pen Needle 32 gauge x 5/32 USE DAILY DIRECTED FOR TYPE 2 DIABETES MELLITUS - DX 11.9 05/22 completed Not Available Not Available Not Available Vitals Date Recorded Body height Body mass index (BMI) Body weight Pain severity - 0-10 verbal numeric rating [Score] - Reported Respiratory rate Oxygen saturation Oxygen saturation in Arterial blood by Pulse oximetry Heart rate Body temperature Systolic And Diastolic Provider Name and Address Organization Details Last Updated DateTime 3 165.1 cm 28.3 kg/m2 99214.7 g 8 18 /min 98 % 98 % 98 /min 97.8 [degF] 106/88 mm[Hg] LARRY Gardiner [facility] 14:03:31 Social History Question Answer Notes LastModified by Organizat ion Details LastModified Time Tobacco Smoking Status Current Every Day Smoker [facility] Hackett [facility] 05/22/2022 14:00:34 Have You Had Direct Contact, Or Contact During Intimacy, With Monkeypox Rash, Scabs, Or Body Fluids From A Person With Monkeypox? No Information not available 05/22/2022 How Much Tobacco Do You Smoke? 2 PPW Information not available 05/22/2022 Have You Recently Traveled Abroad? No Information not available 05/22/2022 Sex: Unknown Functional Status Question Answer Note LastModified by Organizat ion Details LastModified Time Do you use any illicit or recreational drugs? No Information not available 05/22/2022 Do you or have you ever used any other forms of tobacco or nicotine? No Information not available 05/22/2022 What is your level of alcohol consumption? None Information not available 05/22/2022 Mental Status None recorded. Family History Relationship Description Onset Age of this Age Resolved Age Notes LastModified by Organization Details LastModified Time Mother Cerebrovascu lar accident 54 Not available 05/22/2022 13:59:50 Mother Diabetes mellitus Not available 14:00:00 Medical History No medical history recorded. Gynecological HistoryNo gynecological history recorded. Obstetrics History GPAL:G 0 P 0 0 0 0 Immunizations Vaccine Type Date Status Note Provider Nam e and Address Organization Details Recorded Time rabies, intramuscular injection 8 completed LARRY LR-CHANG null, PA - [facility] 05/22/2022 13:55:53 rabies, intramuscular injection 8 completed LARRY LR-CHANG null, PA - [facility] 05/22/2022 13:55:53 rabies, intramuscular injection 8 completed LARRY LR-CHANG null, PA - [facility] 05/22/2022 13:55:53 MMR 9 completed LARRY LR-CHANG null, PA - [facility] 05/22/2022 13:55:53 Past Encounters Encounter ID Performer Location Encounter Start Date Encounter Closed Date Diagnosis/Indication Diagnosis SNOMED-CT Code Diagnosis ICD10 Code Diagnosis IMO Codes Diagnosis Note [id number] [address] [facility] [place] [address] 04/30/2018 13:41:02 04/30/2018 15:36:22 [id number] [address] [facility] [address] [place] [address] 08/28/2020 12:07:10 08/28/2020 14:03:29 [id number] [facility] [address] [facility] [address] [place] [address] 05/22/2022 12:54:53 05/22/2022 14:38:53 Candidiasis of mouth 14012265 B37.0 Health Concerns Section Related Observation LastModified by Organization Detai ls LastModified Time None Recorded Concern Status LastModified by Organization Details LastModified Time None Recorded Advance Directives Directive None Recorded Payers Insurance Date Sequence Insurance Name Policy Number Policy Garcia Covered Member ID Garcia Member ID Guarantor Name 05/22/2022 1 [facility] HEALTH NET PLAN (MEDICAID HMO) MAITE Gutiérrez [id number] La Gutiérrez Notes Date Note Type Note Provider Name and Address Organization Details Recorded Time 05/22/2022 text/html EdemaReported by PatientHPIFor severity, patient reportsmild. For onset/timing, patient reportsabrupt onset. For associated symptoms, patient reportsno shortness of breath.The patient is complaining of tongue pain. Sensitive to food and liquid. No ulcers. Developed a white coating on the tongue. No dry mouth. Does wear dentures. No sore in the mouth or sore throat. No swollen lymph nodes. VINCENT MADERA [address] [place], [address], PA - [facility] 05/22/2022 18:51:25 OBGyn Episode No OBEpisode recorded.
== END 2025-03-11 08:45 | disposition home or self-care (01) ==
LOC: HO.PMC 08:03
PROVIDERS: PCP Internal Medicine; Visit Provider Anesthesiology
DX: M70.61 Trochanteric bursitis, right hip (principal); M70.62 Trochanteric bursitis, left hip; M79.7 Fibromyalgia; G89.4 Chronic pain syndrome; M76.30 Iliotibial band syndrome, unspecified leg; M16.0 Bilateral primary osteoarthritis of hip
CPT/HCPCS: 99204

== ENCOUNTER → 2025-03-11 08:03 | Outpatient (BNVA) | payer OTHER, SELFPAY | PROVIDERS: PCP Internal Medicine; Visit Provider Anesthesiology | DX: G89.4 Chronic pain syndrome (principal); M70.61 Trochanteric bursitis, right hip; M70.62 Trochanteric bursitis, left hip; M76.30 Iliotibial band syndrome, unspecified leg; M16.0 Bilateral primary osteoarthritis of hip; M79.7 Fibromyalgia | CPT/HCPCS: 99202 ==